=== PATIENT | male | born 1980 | race Caucasian/White ===

== ENCOUNTER 2018-01-01 22:14 | Emergency (ER) | payer SELFPAY ==
[~2018-01-01] VITALS: Ht 185.4 cm; Wt 63.8 kg
[2018-01-01 23:11] LABS: BASOPHILS # (AUTO) 0.07 x10^3/uL (0-0.1); BASOPHILS % (AUTO) 1 % (0-1); EOSINOPHILS # (AUTO) 0.09 x10^3/uL (0-0.4); EOSINOPHILS % (AUTO) 1 % (1-7); LYMPHOCYTES # (AUTO) 1.24 x10^3/uL (1-3.4); LYMPHOCYTES % (AUTO) 12 % (22-44); MD NO; MEAN CORPUSCULAR HEMOGLOBIN 32.5 pg (27.5-34.5); MEAN CORPUSCULAR HGB CONC 34.6 g/dL (33.2-36.2); MEAN PLATELET VOLUME 7.1 fL (7.4-10.4); MONOCYTES % (AUTO) 6 % (2-9); NEUTROPHILS # (AUTO) 8.19 x10^3/uL (1.8-6.8); NEUTROPHILS % (AUTO) 80 % (42-75); PLATELET COUNT 263 x10^3/uL (130-400); RED BLOOD COUNT 5.48 x10^6/uL (4.38-5.82); RED CELL DISTRIBUTION WIDTH 12.7 % (9.4-14.8)
[2018-01-01 23:23] LABS: ALANINE AMINOTRANSFERASE 37 U/L (12-78); ALBUMIN 4.2 g/dL (3.4-5.0); ANION GAP 13 mmol/L (5-15); CALCIUM 8.6 mg/dL (8.5-10.1); CHLORIDE 101 mmol/L (98-107); CREATININE 0.97 mg/dL (0.7-1.3)
[2018-01-01 23:27] LABS: ALKALINE PHOSPHATASE 75 U/L (45-117); BILIRUBIN,TOTAL 0.7 mg/dL (0.2-1.0); TROPONIN I < 0.015 ng/mL (0.000-0.045)
[2018-01-01] MEDS ORDERED: SODIUM CHLORIDE 0.9% 1,000ML IVBOLUS ONE (23:30)
[2018-01-01] MEDS ORDERED: SODIUM CHLORIDE FLUSH 10ML SYR IVF ONE (23:30)
[2018-01-01 23:51] LABS: FREE T4 (FREE THYROXINE) 0.93 ng/dL (0.76-1.46); THYROID STIMULATING HORMONE 3.57 mIU/L (0.358-3.740)
[2018-01-02 02:16] VITALS: BP 135/88
== END 2018-01-02 02:32 | disposition home or self-care (01) ==
LOC: ED 23:59
DX: R55 Syncope and collapse (principal); R42 Dizziness and giddiness; E03.9 Hypothyroidism, unspecified
CPT/HCPCS: 36415; 70450; 71045; 80053; 84439; 84443; 84484; 85025; 93005; 96360; 96361; 99285; J7030

== ENCOUNTER 2018-05-07 09:55 | Emergency (ER) | payer OTHER ==
[~2018-05-07] VITALS: Ht 188 cm; Wt 63.0 kg
[2018-05-07 10:40] LABS: BASOPHILS # (AUTO) 0.03 x10^3/uL (0-0.1); BASOPHILS % (AUTO) 0 % (0-1); EOSINOPHILS # (AUTO) 0.06 x10^3/uL (0-0.4); EOSINOPHILS % (AUTO) 1 % (1-7); LYMPHOCYTES # (AUTO) 1.03 x10^3/uL (1-3.4); LYMPHOCYTES % (AUTO) 14 % (22-44); MD NO; MEAN CORPUSCULAR HEMOGLOBIN 32.7 pg (27.5-34.5); MEAN CORPUSCULAR HGB CONC 34.9 g/dL (33.2-36.2); MEAN CORPUSCULAR VOLUME 93.8 fL (81-97); MEAN PLATELET VOLUME 7.4 fL (7.4-10.4); MONOCYTES # (AUTO) 0.62 x10^3/uL (0.2-0.8); MONOCYTES % (AUTO) 9 % (2-9); NEUTROPHILS # (AUTO) 5.51 x10^3/uL (1.8-6.8); NEUTROPHILS % (AUTO) 76 % (42-75); PLATELET COUNT 261 x10^3/uL (130-400); RED BLOOD COUNT 5.11 x10^6/uL (4.38-5.82); RED CELL DISTRIBUTION WIDTH 12.6 % (9.4-14.8)
[2018-05-07 10:47] LABS: ALBUMIN 3.9 g/dL (3.4-5.0); ANION GAP 10 mmol/L (5-15); CALCIUM 8.9 mg/dL (8.5-10.1); CHLORIDE 105 mmol/L (98-107); CREATININE 1.07 mg/dL (0.7-1.3)
[2018-05-07 10:50] LABS: TROPONIN I < 0.015 ng/mL (0.000-0.045)
[2018-05-07 11:56] LABS: HCT (SEDRATE) 47.9 % (39.2-51.8)
[2018-05-07 14:27] VITALS: BP 143/88
== END 2018-05-07 14:30 | disposition home or self-care (01) ==
LOC: ED 10:25
DX: R55 Syncope and collapse (principal)
CPT/HCPCS: 36415; 80048; 82040; 83605; 84484; 85025; 85651; 93005; 93306; 99285

== ENCOUNTER 2018-07-02 07:18 | Emergency (ER) | payer BC ==
[~2018-07-02] VITALS: Ht 185.4 cm; Wt 66.5 kg
[2018-07-02 07:23] VITALS: BP 152/97
--- NOTE | 2018-07-02 08:04 | NUR ---
Patient given discharge instructions and they have confirmed that they understand the instructions. Patient ambulatory with steady gait.
== END 2018-07-02 08:06 | disposition home or self-care (01) ==
LOC: ED 08:00
DX: R21 Rash and other nonspecific skin eruption (principal)
CPT/HCPCS: 99283

== ENCOUNTER 2019-01-21 15:08 | Emergency (ER) | payer BC, OTHER ==
[~2019-01-21] VITALS: Ht 185.4 cm; Wt 66.0 kg
[2019-01-21] MEDS ORDERED: SODIUM CHLORIDE 0.9% 1,000ML IVBOLUS ONE (15:30)
[2019-01-21] MEDS ORDERED: ASPIRIN 81 MG TABLET CHEW PO ONE (15:30)
--- NOTE | 2019-01-21 15:30 | NUR ---
PALPITATIONS/INTERMITTENT MIDSTERANL STABBING PAIN X 1 DAY. HR 125. DENIES CARDIAC HX/ILLICITS. 12-15 DRINKS/DAY FOR LAST WEEK. PLACED ON MONITOR-TO PLACE PIV SHORTLY
--- NOTE | 2019-01-21 15:40 | NUR ---
RIGHT FOREARM PIV PLACED FROM WHICH LAB OBTAINED/SENT. 1L NS THEN ADMINISTERED HR 95 ON CREW TRAINER
[2019-01-21 16:02] LABS: BASOPHILS # (AUTO) 0.06 x10^3/uL (0-0.1); BASOPHILS % (AUTO) 1 % (0-1); EOSINOPHILS # (AUTO) 0.36 x10^3/uL (0-0.4); EOSINOPHILS % (AUTO) 5 % (1-7); LYMPHOCYTES % (AUTO) 24 % (22-44); MD NO; MEAN CORPUSCULAR HEMOGLOBIN 32.1 pg (27.5-34.5); MEAN CORPUSCULAR HGB CONC 33.6 g/dL (33.2-36.2); MEAN CORPUSCULAR VOLUME 95.4 fL (81-97); MEAN PLATELET VOLUME 7.3 fL (7.4-10.4); MONOCYTES # (AUTO) 0.69 x10^3/uL (0.2-0.8); MONOCYTES % (AUTO) 9 % (2-9); NEUTROPHILS # (AUTO) 4.75 x10^3/uL (1.8-6.8); NEUTROPHILS % (AUTO) 62 % (42-75); PLATELET COUNT 280 x10^3/uL (130-400); RED BLOOD COUNT 5.01 x10^6/uL (4.38-5.82); RED CELL DISTRIBUTION WIDTH 13.2 % (9.4-14.8)
[2019-01-21 16:12] LABS: ALBUMIN 3.7 g/dL (3.4-5.0); ANION GAP 12 mmol/L (5-15); CALCIUM 8.3 mg/dL (8.5-10.1); CHLORIDE 108 mmol/L (98-107); CREATININE 1.14 mg/dL (0.7-1.3)
[2019-01-21 16:16] LABS: TROPONIN I < 0.015 ng/mL (0.000-0.045)
[2019-01-21] MEDS ORDERED: ASPIRIN 81 MG TABLET CHEW ONE (16:20)
--- NOTE | 2019-01-21 16:23 | NUR ---
IVF COMPLETE HR TO 95 PROVIDED W/ WATER AFTER CLARIFICATION W/ PROVIDER pROVIDER MADE AWARE OF RECENT ETOH BINGE
[2019-01-21] MEDS ORDERED: LORazepam 2 MG/ML, 1ML IVPush ONE (16:30)
[2019-01-21] MEDS ORDERED: LORazepam 2 MG/ML, 1ML ONE (16:31)
--- NOTE | 2019-01-21 16:52 | NUR ---
MEDICATED PER [facility]. TOLERATING PO FLUIDS
--- NOTE | 2019-01-21 17:10 | NUR ---
HR TO [address] TEST UNREMARKABLE TOLERATING PO FLUIDS RE-EDUCATED ON LIBRIUM PLAN/PRECAUTIONS PROVIDED DETOX/COUNSELING INFORMATION DRIVEN HOME BY SPOUSE
[2019-01-21 17:14] VITALS: BP 135/77
== END 2019-01-21 17:16 | disposition home or self-care (01) ==
LOC: ED 17:05
DX: R00.0 Tachycardia, unspecified (principal); R07.89 Other chest pain; R00.2 Palpitations; F10.239 Alcohol dependence with withdrawal, unspecified
CPT/HCPCS: 36415; 71046; 80048; 82040; 84484; 85025; 85379; 93005; 96374; 99284; J2060; J7030

== ENCOUNTER 2019-12-22 19:37 | Emergency (ER) | payer OTHER ==
[~2019-12-22] VITALS: Ht 185.4 cm; Wt 70.0 kg
--- NOTE | 2019-12-22 20:11 | NUR ---
Patient presents to ER c/o chest pressure since noon. Patient states he feels anxious. He has been binge drinking for the last two weeks after a friend . Patient's last drink was this morning. Patient states he wants to quit altogether. No tremors noted. Patient is in NAD. Respirations even and unlabored.
[2019-12-22] MEDS ORDERED: PANTOPRAZOLE 20MG TABLET ONE (20:17)
[2019-12-22] MEDS ORDERED: MAALOX/HYOSCYAMINE/LIDOCAINE 45 ML BTL ONE (20:18)
[2019-12-22] MEDS ORDERED: PANTOPRAZOLE 20MG TABLET PO ONE (20:30)
[2019-12-22] MEDS ORDERED: MAALOX/HYOSCYAMINE/LIDOCAINE 45 ML BTL PO ONE (20:30)
[2019-12-22 20:37] LABS: BASOPHILS # (AUTO) 0.03 x10^3/uL (0-0.1); BASOPHILS % (AUTO) 0 % (0-1); EOSINOPHILS # (AUTO) 0.23 x10^3/uL (0-0.4); EOSINOPHILS % (AUTO) 4 % (1-7); LYMPHOCYTES # (AUTO) 1.95 x10^3/uL (1-3.4); LYMPHOCYTES % (AUTO) 30 % (22-44); MD NO; MEAN CORPUSCULAR HEMOGLOBIN 31.3 pg (27.5-34.5); MEAN CORPUSCULAR VOLUME 92.1 fL (81-97); MEAN PLATELET VOLUME 7.2 fL (7.4-10.4); MONOCYTES # (AUTO) 0.65 x10^3/uL (0.2-0.8); MONOCYTES % (AUTO) 10 % (2-9); NEUTROPHILS # (AUTO) 3.72 x10^3/uL (1.8-6.8); NEUTROPHILS % (AUTO) 57 % (42-75); PLATELET COUNT 274 x10^3/uL (130-400); RED BLOOD COUNT 5.07 x10^6/uL (4.38-5.82); RED CELL DISTRIBUTION WIDTH 13.7 % (9.4-14.8)
[2019-12-22 20:46] LABS: ALBUMIN 3.9 g/dL (3.4-5.0); ANION GAP 6 mmol/L (5-15); CALCIUM 8.6 mg/dL (8.5-10.1); CHLORIDE 109 mmol/L (98-107); CREATININE 1.15 mg/dL (0.7-1.3)
[2019-12-22 20:50] LABS: TROPONIN I < 0.015 ng/mL (0.000-0.045)
--- NOTE | 2019-12-22 20:59 | NUR ---
Patient states, "the pressure has mostly gone away but I still don't feel great."
[2019-12-22 21:00] VITALS: BP 127/87
--- NOTE | 2019-12-22 21:40 | NUR ---
Discharge instructions given. All questions and concerns addressed. Patient ambulatory with a steady gait. Belongings with patient.
== END 2019-12-22 21:42 | disposition home or self-care (01) ==
LOC: ED 21:41
DX: K29.20 Alcoholic gastritis without bleeding (principal); R07.2 Precordial pain; R00.0 Tachycardia, unspecified; F17.210 Nicotine dependence, cigarettes, uncomplicated
CPT/HCPCS: 36415; 71045; 80048; 80307; 82040; 83735; 84484; 85025; 85379; 93005; 99285

== ENCOUNTER 2020-07-07 20:46 | Emergency (ER) | payer SELFPAY ==
[~2020-07-07] VITALS: Ht 188 cm; Wt 65.4 kg
--- NOTE | 2020-07-07 21:06 | NUR ---
PT HAD WALKED INTO [facility], BEFORE PT COULD BE TRIAGED, HE WALKED OUT TO LOBBY IN [facility].
--- NOTE | 2020-07-07 21:14 | NUR ---
PT CHECKED BACK IN FOR R SIDED CP. STATES GOING ON FOR ~1WK. CURRENTLY 08/12, STATES INCREASED PAIN C SMOKING. NON RADIATING. DENIES N/V. VSS. WILL CTM.
[2020-07-07 22:06] LABS: BASOPHILS % (AUTO) 1 % (0-1); EOSINOPHILS % (AUTO) 4 % (1-7); LYMPHOCYTES % (AUTO) 30 % (22-44); MEAN CORPUSCULAR HGB CONC 34.9 g/dL (33.2-36.2); MEAN PLATELET VOLUME 7.2 fL (7.4-10.4); MONOCYTES % (AUTO) 9 % (2-9); NEUTROPHILS % (AUTO) 57 % (42-75); PLATELET COUNT 294 x10^3/uL (130-400); RED BLOOD COUNT 5.66 x10^6/uL (4.38-5.82)
[2020-07-07 22:15] LABS: MD NO
[2020-07-07 22:19] LABS: ALBUMIN 3.8 g/dL (3.4-5.0); ANION GAP 4 mmol/L (5-15); CALCIUM 8.7 mg/dL (8.5-10.1); CHLORIDE 107 mmol/L (98-107)
[2020-07-07 22:25] LABS: ALANINE AMINOTRANSFERASE 50 U/L (12-78); ALKALINE PHOSPHATASE 82 U/L (45-117); BILIRUBIN,TOTAL 0.3 mg/dL (0.2-1.0); CREATININE 0.91 mg/dL (0.7-1.3); TOTAL PROTEIN 7.6 g/dL (6.4-8.2); TROPONIN I < 0.015 ng/mL (0.000-0.045)
[2020-07-07 22:39] VITALS: BP 133/81
== END 2020-07-07 22:41 | disposition home or self-care (01) ==
LOC: ED 21:34
DX: R07.1 Chest pain on breathing (principal); R07.2 Precordial pain; R07.89 Other chest pain; R94.31 Abnormal electrocardiogram [ECG] [EKG]; F17.210 Nicotine dependence, cigarettes, uncomplicated
CPT/HCPCS: 36415; 71045; 80053; 84484; 85025; 85379; 93005; 99285; 99406